=== PATIENT | male | born 1970 | race Caucasian/White ===

== ENCOUNTER 2018-12-21 20:27 | Emergency (ER) | payer MEDICAID ==
[~2018-12-21] VITALS: Ht 180.3 cm; Wt 67.5 kg
[~2018-12-21 20:27] MED LIST: ALB0.5UD NEB; CYCL-394 PO; HYDR1TAB69 PO; LORA-512 PO; OMEP-84 PO; ONDA4TAB6 PO; ONDA8TAB6 PO
[2018-12-21 20:47] VITALS: BP 155/99
== END 2018-12-21 23:18 | disposition home or self-care (01) ==
LOC: ER 20:27
DX: S01.312A Laceration without foreign body of left ear, initial encounter (principal); I10 Essential (primary) hypertension; G89.29 Other chronic pain; F12.90 Cannabis use, unspecified, uncomplicated; Z98.890 Other specified postprocedural states; Z79.899 Other long term (current) drug therapy; Z56.0 Unemployment, unspecified; W01.118A Fall on same level from slipping, tripping and stumbling with subsequent striking against other sharp object, initial encounter; Y93.89 Activity, other specified; Y92.89 Other specified places as the place of occurrence of the external cause; Y99.8 Other external cause status
CPT/HCPCS: 12001; 99283

== ENCOUNTER 2020-10-21 06:46 | Inpatient (IN) | payer MEDICAID ==
[2020-10-21] VITALS (11 sets, daily range): BP systolic 108–155; BP diastolic 63–104
[~2020-10-21] VITALS: Ht 177.8 cm; Wt 190.7 kg
[2020-10-21 07:42] LABS: BASOPHILS # (AUTO) 0.1 X10'3 (0-0.2); BASOPHILS % (AUTO) 0.6 % (0-1); EOSINOPHILS # (AUTO) 0.2 X10'3 (0-0.9); EOSINOPHILS % (AUTO) 2.2 % (0-6); HEMOGLOBIN 14.8 g/dl (14.0-17.9); LYMPHOCYTES # (AUTO) 1.4 X10'3 (1.1-4.8); LYMPHOCYTES % (AUTO) 13.9 % (21-51); MEAN CORPUSCULAR HEMOGLOBIN 31.3 PG (27.0-31.0); MEAN CORPUSCULAR HGB CONC 34.3 g/dL (33.0-36.5); MEAN CORPUSCULAR VOLUME 91.1 FL (78-98); MEAN PLATELET VOLUME 7.1 FL (7.4-10.4); MONOCYTES % (AUTO) 9.8 % (2-12); NEUTROPHILS # (AUTO) 7.5 X10'3 (1.8-7.7); NEUTROPHILS % (AUTO) 73.5 % (42-75); PLATELET COUNT 233 X10'3 (140-440); RED BLOOD COUNT 4.72 X10'6 (4.70-6.10); RED CELL DISTRIBUTION WIDTH 13.7 % (11.5-14.5); WHITE BLOOD COUNT 10.2 X10'3 (4.5-11.0)
[2020-10-21 07:58] LABS: ALANINE AMINOTRANSFERASE 33 U/L (12-78); ALBUMIN 3.4 G/DL (3.4-5.0); ALKALINE PHOSPHATASE 86 IU/L (46-116); ANION GAP 4 (8-16); ASPARTATE AMINO TRANSFERASE 47 U/L (10-37); BILIRUBIN,TOTAL 0.2 MG/DL (0.1-1.0); BLOOD UREA NITROGEN 14 MG/DL (7-18); BUN/CREATININE RATIO 15.7 (5.4-32.0); CALCIUM 8.9 MG/DL (8.5-10.1); CHLORIDE 107 MMOL/L (99-107); CREATININE 0.89 MG/DL (0.60-1.10); GLUCOSE 85 MG/DL (70-104); POTASSIUM 4.1 MMOL/L (3.5-5.1); SODIUM 141 MMOL/L (135-145); TOTAL PROTEIN 6.9 G/DL (6.4-8.2); eGFR > 90 ML/MIN
[2020-10-21] MEDS ORDERED: heparin 10,000 units/1 ML INJ IV ONE ×2 (08:15→08:25)
[2020-10-21] MEDS ORDERED: heparin 25,000 UNIT/250ml bag 250 ML IV SCH ×2 (08:15→08:25)
[2020-10-21] MEDS ORDERED: heparin 10,000 units/1 ML INJ IV PRN ×2 (08:15→08:25)
[2020-10-21] MEDS ORDERED: nitroGLYCERIN 0.4mg SUBLingual tab SL PRN ×2 (08:20→08:25)
--- NOTE | 2020-10-21 08:20 | NUR ---
CALLED PHARMACY TO INFORM THAT PT HEPARIN DRIP IS NOT OMNICELL PER PHARMACIST CRISTINA IT WILL BE READY IN FEW MINS.
[2020-10-21] MEDS ORDERED: ondansetron/PF 4mg/2ml inj IV PRN (08:25)
[2020-10-21] MEDS ORDERED: acetaminophen 650mg rectal suppository RC PRN (08:25)
[2020-10-21] MEDS ORDERED: diphenhydrAMINE 25mg capsule PO PRN (08:25)
[2020-10-21] MEDS ORDERED: magnesium 2GM in 50ml NS 50 ML IV PRN (08:25)
[2020-10-21] MEDS ORDERED: magnesium Cl slow-release 64mg tablet PO PRN (08:25)
[2020-10-21] MEDS ORDERED: HYDROcodone/acetaminophen 5mg/325mg tablet PO PRN (08:25)
[2020-10-21] MEDS ORDERED: magnesium 4gm in 100ml NS 100 ML IV PRN (08:25)
[2020-10-21] MEDS ORDERED: potassium Cl 40MEQ/1/2NS 520ml 520 ML IV PRN ×2 (08:25)
[2020-10-21] MEDS ORDERED: mag hydrox/Alum hydrox/simeth 30ml oral suspension PO PRN (08:25)
[2020-10-21] MEDS ORDERED: acetaminophen 325mg tablet PO PRN ×2 (08:25)
[2020-10-21] MEDS ORDERED: morphine 2 MG/ML inj. syringe IV PRN ×2 (08:25)
[2020-10-21] MEDS ORDERED: LORazepam 0.5 MG tablet PO PRN (08:25)
[2020-10-21] MEDS ORDERED: HYDROcodone/acetaminophen 10/325mg tab PO PRN (08:25)
[2020-10-21] MEDS ORDERED: magnesium hydroxide 30ml (MOM) UD suspension PO PRN (08:25)
[2020-10-21] MEDS ORDERED: potassium Cl 20 mEq SR tablet PO PRN ×2 (08:25)
[2020-10-21] MEDS ORDERED: bisacodyl 10mg suppository rectal RC PRN (08:25)
[2020-10-21] MEDS ORDERED: diphenhydrAMINE 50 mg/ml inj IV PRN (08:25)
[2020-10-21] MEDS ORDERED: LORazepam 2 mg/ml vial IV PRN (08:25)
[2020-10-21] MEDS: atorvastatin 20mg tablet PO SCH (08:25)
[2020-10-21] MEDS ORDERED: aspirin 325mg tablet PO SCH (08:30)
[2020-10-21 08:41] LABS: PARTIAL THROMBOPLASTIN TIME 25 SECONDS (22-32)
[2020-10-21] MEDS ORDERED: midazolam 2 mg/2 ml injection ONE (09:17)
[2020-10-21] MEDS ORDERED: verapamil 2.5 mg/ml inj IV ONE (09:17)
[2020-10-21] MEDS ORDERED: fentaNYL/PF 50MCG/1 ML 2ML syringe ONE (09:17)
[2020-10-21] MEDS ORDERED: LIDOcaine 1% (10mg/ml)w/preservative injection 20ml MDV ONE (09:18)
[2020-10-21] MEDS ORDERED: iohexol 350 MG/ML 50ML vial IV ONE (09:18)
[2020-10-21] MEDS ORDERED: heparin 1,000unit/ml 10ml vial 10 ML ONE (09:18)
[2020-10-21] MEDS ORDERED: iohexol 350MG/ML 100ml bottle IV ONE ×2 (09:18→10:33)
[2020-10-21] MEDS ORDERED: nitroGLYCERIN-Tridil 50MG/D5W 250 ML IV ONE (09:18)
--- NOTE | 2020-10-21 09:42 | NUR ---
Received patient report from SAMARIA Whiteside in ED. Patient left for heart cath with Dr. Ruiz. Awaiting patient arrival to room 3012A.
[2020-10-21] MEDS ORDERED: tirofiban 5mg in NS 100mL 100 ML IV ONE (10:35)
[2020-10-21] MEDS ORDERED: magnesium 1 GM/2 ML inj ONE (11:00)
[2020-10-21] MEDS ORDERED: clopidogrel 300mg tablet ONE (11:08)
--- NOTE | 2020-10-21 11:30 | NUR ---
Patient arrived to room 3012A via hospital bed from cardiac union laborer. Postop vitals started for patient. Bed locked and lowered, nonskid socks on, call light in reach, frequent rounding. Will continue to monitor.
[2020-10-21] MEDS: normal saline 1000ml 1,000 ML IV SCH (12:20)
[2020-10-21] MEDS ORDERED: AMIT100T61 PO (12:52)
[2020-10-21] MEDS ORDERED: ATEN50TA8 PO (12:52)
[2020-10-21] MEDS ORDERED: IBUP-1986 PO (12:52)
[2020-10-21 13:18] LABS: HEMOGLOBIN A1C 5.6 % (4.5-6.2)
[2020-10-21] MEDS: tirofiban 5mg in NS 100mL 100 ML IV SCH ×2 (15:08→20:42)
[2020-10-21] MEDS ORDERED: pneumococcal 23-VAL P-sac vacc 25 mcg/0.5ml vial IMVAC ONE (15:10)
[2020-10-21] MEDS ORDERED: FLU VACC QS2020-21(6MOS UP)/PF 60 MCG/0.5 ML SYRINGE IMVAC ONE ×2 (15:10→15:55)
--- NOTE | 2020-10-21 15:21 | NUR ---
Orders for nicotine patch put in per Dr. Canseco.
--- NOTE | 2020-10-21 16:10 | NUR ---
Orders to D/C 12hr troponin put in per Dr. Canseco.
--- NOTE | 2020-10-21 18:12 | NUR ---
Problems reprioritized. Patient report given, questions answered & plan of care reviewed with SAMARIA Ceballos. Patient stable at transfer of care.
--- NOTE | 2020-10-21 18:20 | NUR ---
Patient in room PCU 3012. I have received report from SAMARIA Lyle and had the opportunity to ask questions and assume patient care.
[2020-10-21] MEDS: K and/or MAG REPLACEMENT MC SCH (20:00)
[2020-10-21] MEDS ORDERED: temazepam 15mg capsule PO PRN (21:00)
[2020-10-21] MEDS ORDERED: amitriptyline 50mg tablet PO SCH (21:00)
[2020-10-22] MEDS: normal saline 1000ml 1,000 ML IV SCH ×3 (00:50→14:25)
[2020-10-22] MEDS: tirofiban 5mg in NS 100mL 100 ML IV SCH (02:39)
[2020-10-22 06:06] LABS: BASOPHILS % (AUTO) 0.4 % (0-1); EOSINOPHILS # (AUTO) 0.3 X10'3 (0-0.9); EOSINOPHILS % (AUTO) 3.4 % (0-6); HEMATOCRIT 40.8 % (42.0-52.0); LYMPHOCYTES # (AUTO) 1.7 X10'3 (1.1-4.8); LYMPHOCYTES % (AUTO) 21.1 % (21-51); MEAN CORPUSCULAR HEMOGLOBIN 31.1 PG (27.0-31.0); MEAN CORPUSCULAR HGB CONC 34.3 g/dL (33.0-36.5); MEAN CORPUSCULAR VOLUME 90.7 FL (78-98); MEAN PLATELET VOLUME 7.2 FL (7.4-10.4); MONOCYTES # (AUTO) 0.9 X10'3 (0-0.9); MONOCYTES % (AUTO) 10.9 % (2-12); NEUTROPHILS % (AUTO) 64.2 % (42-75); PLATELET COUNT 196 X10'3 (140-440); RED CELL DISTRIBUTION WIDTH 13.8 % (11.5-14.5); WHITE BLOOD COUNT 7.8 X10'3 (4.5-11.0)
[2020-10-22 06:22] LABS: ALANINE AMINOTRANSFERASE 41 U/L (12-78); ALBUMIN 3.1 G/DL (3.4-5.0); ALKALINE PHOSPHATASE 82 IU/L (46-116); ANION GAP 7 (8-16); ASPARTATE AMINO TRANSFERASE 83 U/L (10-37); BILIRUBIN,TOTAL 0.3 MG/DL (0.1-1.0); CALCIUM 8.6 MG/DL (8.5-10.1); CHLORIDE 108 MMOL/L (99-107); CHOL/HDL RATIO 4.3 (0.00-4.99); CHOLESTEROL 156 MG/DL (0-200); CREATININE 0.82 MG/DL (0.60-1.10); GLUCOSE 110 MG/DL (70-104); HDL CHOLESTEROL 36 MG/DL (35-60); LDL CHOLESTEROL 107 MG/DL (50-100); MAGNESIUM 1.9 MG/DL (1.5-2.4); SODIUM 139 MMOL/L (135-145); TOTAL CARBON DIOXIDE 24.1 MMOL/L (24-32); TOTAL PROTEIN 6.3 G/DL (6.4-8.2); TRIGLYCERIDES 94 MG/DL (20-135); eGFR > 90 ML/MIN
[2020-10-22 06:29] LABS: BLOOD UREA NITROGEN 10 MG/DL (7-18); BUN/CREATININE RATIO 12.2 (5.4-32.0)
--- NOTE | 2020-10-22 06:30 | NUR ---
Problems reprioritized. Patient report given, questions answered & plan of care reviewed with Lin MERA.
--- NOTE | 2020-10-22 06:43 | NUR ---
Problems reprioritized. Patient report given, questions answered & plan of care reviewed with SAMARIA Elam.
[2020-10-22 07:21] VITALS: BP 131/85
[2020-10-22] MEDS: K and/or MAG REPLACEMENT MC SCH (08:00)
[2020-10-22] MEDS ORDERED: clopidogrel 75mg tablet PO SCH (08:00)
[2020-10-22] MEDS ORDERED: losartan 25mg tablet PO SCH (08:00)
[2020-10-22] MEDS ORDERED: nicotine 14mg patch - 24hr TD SCH (08:00)
[2020-10-22] MEDS ORDERED: pantoprazole 40mg Tablet.DR PO SCH (08:00)
[2020-10-22] MEDS ORDERED: atenolol 25mg tablet PO SCH (08:00)
[2020-10-22] MEDS ORDERED: atorvastatin 20mg tablet PO SCH (08:00)
[2020-10-22] MEDS ORDERED: aspirin 81mg tab.chew PO SCH (08:30)
[2020-10-22] MEDS ORDERED: pneumococcal 23-VAL P-sac vacc 25 mcg/0.5ml vial IMVAC ONE ×2 (10:00→13:30)
[2020-10-22] MEDS: atorvastatin 20mg tablet PO SCH (10:30)
[2020-10-22 11:30] VITALS: BP 114/90
[2020-10-22] MEDS ORDERED: ATEN-168 PO (12:16)
[2020-10-22] MEDS ORDERED: CLOP75TA34 PO (12:16)
[2020-10-22] MEDS ORDERED: NITR0.4T51 SL (12:16)
[2020-10-22] MEDS ORDERED: LOSA25TA41 PO (12:16)
[2020-10-22] MEDS ORDERED: ATOR20TA66 PO (12:16)
[2020-10-22] MEDS ORDERED: FLU VACC QS2020-21(6MOS UP)/PF 60 MCG/0.5 ML SYRINGE IMVAC ONE (13:30)
[2020-10-22 15:00] VITALS: BP 108/69
--- NOTE | 2020-10-22 15:45 | NUR ---
Patient discharged and both IV taken out at this time, sites showed minimal bleeding and canula was intact for both. Patient left with education of procedures done, patient expressed verbal understanding. Patient educated on new medication and how to use. Patient left with private vehicle and taken home.
== END 2020-10-22 15:45 | disposition home or self-care (01) | DRG 174 ==
LOC: ER 06:47 → ED HOLD 08:25 → PCU 3S 11:49
PROVIDERS: ADMIT Family Medicine; ATTEND Family Medicine
PROC: 027034Z Dilation of Coronary Artery, One Artery with Drug-eluting Intraluminal Device, Percutaneous Approach (ICD-10-PCS; principal; 2020-10-21)
PROC: 4A023N7 Measurement of Cardiac Sampling and Pressure, Left Heart, Percutaneous Approach (ICD-10-PCS; 2020-10-21)
PROC: B2111ZZ Fluoroscopy of Multiple Coronary Arteries using Low Osmolar Contrast (ICD-10-PCS; 2020-10-21)
PROC: B2151ZZ Fluoroscopy of Left Heart using Low Osmolar Contrast (ICD-10-PCS; 2020-10-21)
DX: I21.4 Non-ST elevation (NSTEMI) myocardial infarction (principal); I24.9 Acute ischemic heart disease, unspecified; I10 Essential (primary) hypertension; F17.210 Nicotine dependence, cigarettes, uncomplicated; F32.9 Major depressive disorder, single episode, unspecified; F41.9 Anxiety disorder, unspecified; J45.909 Unspecified asthma, uncomplicated; K21.9 Gastro-esophageal reflux disease without esophagitis; M54.9 Dorsalgia, unspecified; G89.29 Other chronic pain; M19.90 Unspecified osteoarthritis, unspecified site; Z20.822 Contact with and (suspected) exposure to COVID-19; Z56.0 Unemployment, unspecified; Z82.49 Family history of ischemic heart disease and other diseases of the circulatory system; Z87.442 Personal history of urinary calculi; Z88.8 Allergy status to other drugs, medicaments and biological substances; Z79.899 Other long term (current) drug therapy
CPT/HCPCS: 36415; 71045; 76937; 80053; 80061; 83036; 83735; 83880; 84484; 85025; 85347; 85610; 85730; 87081; 87635; 90732; 93005; 93306; 93308; 93458; 99152; 99153; 99285; A4620; A5120; A6258; C1725; C1751; C1769; C1874; C1894; C9600; C9803; G0378; J1644; J2001; J2250; J3010; J3246; J3475; J3490; J7030; Q2039; Q9967

== ENCOUNTER 2022-01-23 14:14 | Inpatient (IN) | payer MEDICAID ==
[~2022-01-23] VITALS: Ht 177.8 cm; Wt 80.7 kg
[~2022-01-23 14:14] MED LIST changes: +AMIT100T61 PO; +ATEN-168 PO; +ATOR20TA66 PO; +CLOP75TA34 PO; -HYDR1TAB69 PO; -LORA-512 PO; +LOSA25TA41 PO; +NITR0.4T51 SL; -ONDA4TAB6 PO; -ONDA8TAB6 PO
[2022-01-23 15:20] LABS: BASOPHILS % (AUTO) 0.5 % (0-1); EOSINOPHILS # (AUTO) 0.2 X10'3 (0-0.9); EOSINOPHILS % (AUTO) 3.6 % (0-6); HEMATOCRIT 44.4 % (42.0-52.0); HEMOGLOBIN 15.2 g/dl (14.0-17.9); LYMPHOCYTES # (AUTO) 1.4 X10'3 (1.1-4.8); LYMPHOCYTES % (AUTO) 29.3 % (21-51); MEAN CORPUSCULAR HEMOGLOBIN 30.5 PG (27.0-31.0); MEAN CORPUSCULAR HGB CONC 34.3 g/dL (33.0-36.5); MEAN CORPUSCULAR VOLUME 88.9 FL (78-98); MEAN PLATELET VOLUME 7.5 FL (7.4-10.4); MONOCYTES # (AUTO) 0.5 X10'3 (0-0.9); MONOCYTES % (AUTO) 10.6 % (2-12); NEUTROPHILS # (AUTO) 2.7 X10'3 (1.8-7.7); PLATELET COUNT 189 X10'3 (140-440); RED CELL DISTRIBUTION WIDTH 12.9 % (11.5-14.5); WHITE BLOOD COUNT 4.8 X10'3 (4.5-11.0)
[2022-01-23 15:40] LABS: ALANINE AMINOTRANSFERASE 30 U/L (12-78); ALBUMIN 3.8 G/DL (3.4-5.0); ALKALINE PHOSPHATASE 94 IU/L (46-116); ANION GAP 9 (8-16); ASPARTATE AMINO TRANSFERASE 12 U/L (10-37); BILIRUBIN,TOTAL 0.4 MG/DL (0.1-1.0); BLOOD UREA NITROGEN 18 MG/DL (7-18); CALCIUM 8.7 MG/DL (8.5-10.1); CHLORIDE 91 MMOL/L (99-107); POTASSIUM 4.2 MMOL/L (3.5-5.1); SODIUM 128 MMOL/L (135-145); TOTAL PROTEIN 7.5 G/DL (6.4-8.2); eGFR 64 ML/MIN
[2022-01-23 15:44] LABS: GLUCOSE 456 MG/DL (70-104)
[2022-01-23] MEDS ORDERED: ASPI-1265 PO (16:28)
[2022-01-23] MEDS ORDERED: DIVA-76 PO ×2 (16:30)
[2022-01-23] MEDS ORDERED: HYDR-3927 PO (16:30)
[2022-01-23] MEDS ORDERED: ATOR40TA72 PO (16:39)
[2022-01-23] MEDS ORDERED: ALBU8.5H17 INH (16:39)
[2022-01-23] MEDS ORDERED: ATEN-236 PO (16:39)
[2022-01-23] MEDS ORDERED: LOSA25TA96 PO (16:42)
[2022-01-23] MEDS ORDERED: CLOP75TA33 PO (16:42)
[2022-01-23] MEDS ORDERED: NITR0.4T51 SL (16:42)
[2022-01-23] MEDS ORDERED: potassium Cl 20 mEq SR tablet PO PRN ×2 (16:55)
[2022-01-23] MEDS ORDERED: nitroGLYCERIN 0.4mg SUBLingual tab SL PRN ×3 (16:55→17:20)
[2022-01-23] MEDS ORDERED: ondansetron 4mg rapidly disintigrating tab PO PRN (16:55)
[2022-01-23] MEDS ORDERED: magnesium 2GM in 50ml NS 50 ML IV PRN (16:55)
[2022-01-23] MEDS ORDERED: morphine 2 MG/ML inj. syringe IV PRN ×2 (16:55)
[2022-01-23] MEDS ORDERED: magnesium Cl slow-release 64mg tablet PO PRN (16:55)
[2022-01-23] MEDS ORDERED: magnesium hydroxide 30ml (MOM) UD suspension PO PRN (16:55)
[2022-01-23] MEDS ORDERED: PERFLUTREN PROTEIN-A MICROSPHR (Optison) 0.22 MG/ML 3ML VIAL IV ONE (16:55)
[2022-01-23] MEDS ORDERED: ondansetron/PF 4mg/2ml inj IV PRN (16:55)
[2022-01-23] MEDS ORDERED: acetaminophen 325mg tablet PO PRN ×2 (16:55)
[2022-01-23] MEDS ORDERED: metoprolol tartrate 1mg/ml inj IV PRN (16:55)
[2022-01-23] MEDS ORDERED: metoclopramide 5 mg/ml inj IV PRN (16:55)
[2022-01-23] MEDS ORDERED: mag hydrox/Alum hydrox/simeth 30ml oral suspension PO PRN (16:55)
[2022-01-23] MEDS ORDERED: regadenoson 0.4mg/5ml syringe IV PRN (16:55)
[2022-01-23] MEDS ORDERED: magnesium 4gm in 100ml NS 100 ML IV PRN (16:55)
[2022-01-23] MEDS ORDERED: aminophylline 250mg/10ml inj. IV PRN (16:55)
[2022-01-23] MEDS ORDERED: potassium CL 10mEq/100ml bag 100 ML IV PRN (16:55)
[2022-01-23] MEDS ORDERED: albuterol 2.5 MG/3 ML nebule NEB PRN (17:20)
[2022-01-23] MEDS: normal saline 1000ml 1,000 ML IV SCH (17:29)
[2022-01-23 17:31] LABS: HEMOGLOBIN A1C 11.3 % (4.5-6.2)
[2022-01-23 17:48] LABS: MAGNESIUM 1.9 MG/DL (1.5-2.4)
[2022-01-23 17:49] LABS: POTASSIUM 4.2 MMOL/L (3.5-5.1)
[2022-01-23] MEDS: K and/or MAG REPLACEMENT MC SCH (20:00)
[2022-01-23 20:15] VITALS: BP 109/85
--- NOTE | 2022-01-23 20:29 | NUR ---
PATIENT ARRIVED ON THE UNIT AND DENIES AND PAIN. RESTING WITH NO SIGN OF DISTRESS
[2022-01-23] MEDS: hydrOXYzine 25 MG tablet PO SCH (20:37)
[2022-01-23] MEDS: docusate sod 100mg capsule PO SCH (20:37)
[2022-01-23] MEDS ORDERED: amitriptyline 50mg tablet PO SCH (21:00)
[2022-01-23] MEDS ORDERED: divalproex sodium 500mg tablet.DR PO SCH (21:00)
[2022-01-23 22:00] VITALS: BP 98/74
--- NOTE | 2022-01-23 22:20 | NUR ---
PAGED HOSPITALIST MATT TWICE CONCERNING PATIENT BLOOD GLUCOSE ([phone]). PATIENT IS NEWLY ADMITTED AND NO RESPONSE.
[2022-01-24] VITALS (13 sets, daily range): BP systolic 119–166; BP diastolic 72–92
[2022-01-24] MEDS: normal saline 1000ml 1,000 ML IV SCH (03:57)
[2022-01-24 05:20] LABS: BASOPHILS % (AUTO) 0.7 % (0-1); EOSINOPHILS # (AUTO) 0.2 X10'3 (0-0.9); EOSINOPHILS % (AUTO) 4.8 % (0-6); HEMATOCRIT 40.7 % (42.0-52.0); HEMOGLOBIN 14.2 g/dl (14.0-17.9); LYMPHOCYTES # (AUTO) 1.4 X10'3 (1.1-4.8); LYMPHOCYTES % (AUTO) 35.9 % (21-51); MEAN CORPUSCULAR HEMOGLOBIN 30.9 PG (27.0-31.0); MEAN CORPUSCULAR HGB CONC 34.8 g/dL (33.0-36.5); MEAN CORPUSCULAR VOLUME 88.8 FL (78-98); MEAN PLATELET VOLUME 7.4 FL (7.4-10.4); MONOCYTES # (AUTO) 0.4 X10'3 (0-0.9); MONOCYTES % (AUTO) 11.4 % (2-12); NEUTROPHILS # (AUTO) 1.9 X10'3 (1.8-7.7); NEUTROPHILS % (AUTO) 47.2 % (42-75); PLATELET COUNT 148 X10'3 (140-440); RED BLOOD COUNT 4.59 X10'6 (4.70-6.10); RED CELL DISTRIBUTION WIDTH 12.9 % (11.5-14.5); WHITE BLOOD COUNT 3.9 X10'3 (4.5-11.0)
[2022-01-24] MEDS ORDERED: glucagon, human recombinant 1mg kit SUBCUT PRN (05:40)
[2022-01-24] MEDS ORDERED: insulin Lispro (HumaLOG) vial - multi-dose SQ SCH (05:40)
[2022-01-24] MEDS ORDERED: dextrose 50%-water 50ml dispensing syringe IV PRN ×2 (05:40)
[2022-01-24] MEDS ORDERED: DEXTROSE 15 GM of carb/4 tabs (each vial/BOTTLE has 4 tablets) PO PRN ×2 (05:40)
[2022-01-24] MEDS ORDERED: MESSAGE TO PHARMACY PO ONE (05:40)
[2022-01-24 05:59] LABS: ALANINE AMINOTRANSFERASE 28 U/L (12-78); ALBUMIN 3.2 G/DL (3.4-5.0); ALBUMIN/GLOBULIN RATIO 1.1 (1.1-1.5); ALKALINE PHOSPHATASE 77 IU/L (46-116); ANION GAP 9 (8-16); ASPARTATE AMINO TRANSFERASE 15 U/L (10-37); BILIRUBIN,TOTAL 0.3 MG/DL (0.1-1.0); BLOOD UREA NITROGEN 16 MG/DL (7-18); BUN/CREATININE RATIO 18.8 (5.4-32.0); CALCIUM 8.4 MG/DL (8.5-10.1); CHLORIDE 101 MMOL/L (99-107); CHOLESTEROL 169 MG/DL (0-200); CREATININE 0.85 MG/DL (0.60-1.10); GLUCOSE 270 MG/DL (70-104); HDL CHOLESTEROL 34 MG/DL (35-60); LDL CHOLESTEROL 98 MG/DL (50-100); MAGNESIUM 1.7 MG/DL (1.5-2.4); POTASSIUM 3.6 MMOL/L (3.5-5.1); SODIUM 134 MMOL/L (135-145); TOTAL CARBON DIOXIDE 24.1 MMOL/L (24-32); TOTAL PROTEIN 6.2 G/DL (6.4-8.2); TRIGLYCERIDES 261 MG/DL (20-135); eGFR > 90 ML/MIN
[2022-01-24] MEDS ORDERED: atenolol 25mg tablet PO SCH (08:00)
[2022-01-24] MEDS ORDERED: divalproex sodium 500mg tablet.DR PO SCH (08:00)
[2022-01-24] MEDS ORDERED: pantoprazole 40mg Tablet.DR PO SCH (08:00)
[2022-01-24] MEDS: K and/or MAG REPLACEMENT MC SCH (08:00)
[2022-01-24] MEDS ORDERED: clopidogrel 75mg tablet PO SCH (08:00)
[2022-01-24] MEDS ORDERED: enoxaparin 40mg/0.4ml syringe SUBCUT SCH (08:00)
[2022-01-24] MEDS ORDERED: losartan 25mg tablet PO SCH ×2 (08:00)
[2022-01-24] MEDS ORDERED: atorvastatin 20mg tablet PO SCH (08:00)
[2022-01-24] MEDS ORDERED: aspirin 325mg tablet PO SCH (08:30)
[2022-01-24] MEDS: hydrOXYzine 25 MG tablet PO SCH (08:30)
[2022-01-24] MEDS: docusate sod 100mg capsule PO SCH (08:31)
--- NOTE | 2022-01-24 11:23 | NUR ---
PAGER ID: [phone] MESSAGE: JUSTIN ON [email or web address], THE EMIGDOI RESULTS ARE AVIALABLE FOR 3027B, THX.
--- NOTE | 2022-01-24 11:24 | NUR ---
Diabetes consult: Noted pt w/ hx of DM A1c 11.3 though pt states he was unaware of diabetes until this admit. Provided pt w/ written and verbal DM ed w/ RD contact info. Addendum: 01/24/22 at [address] Amended: Links added.
--- NOTE | 2022-01-24 11:43 | NUR ---
Atenolol and Depakote administered late r/t needing medication from pharmacy and patient went to have Lexiscan performed.
[2022-01-24] MEDS ORDERED: iohexol 300mg/ml 100ml inj. ONE (12:38)
[2022-01-24] MEDS ORDERED: OMEP20CA15 PO (15:01)
--- NOTE | 2022-01-24 16:29 | NUR ---
Patient discharged with all personal belongings. Discharge packet reviewed with patient and spouse who was at bedside. All questions answered r/t medication changes and continued medication, patient stated he has a doctors appointment this week at [facility] and plans on going. Diabetic teaching provided at bedside patient asked appropriate questions and received answers well. The importance to attend his follow up appointment reiterated multiple times throughout education and discharge review. PIV removed from right arm, patient tolerated well with no c/o pain present, pressure dressing placed. Tele removed and returned. Patient dressed himself independently and walked down to lobby by nursing staff with all his belongings.
--- NOTE | 2022-01-24 16:30 | NUR ---
Orientee documentation: I have reviewed and agree with all interventions, assessments performed and documented by ZAN Chew II.
[2022-01-24] MEDS ORDERED: insulin glargine (Lantus) pen - multi-dose SQ SCH (21:00)
== END 2022-01-24 16:20 | disposition home or self-care (01) | DRG 198 ==
LOC: ER 14:15 → ED HOLD 17:04 → UNDOADMIN 17:53 → PCU 3S 20:20 → ED HOLD 20:20
PROVIDERS: ADMIT Family Medicine; ATTEND Family Medicine
PROC: 4A02XM4 Measurement of Cardiac Total Activity, External Approach (ICD-10-PCS; principal; 2022-01-24)
PROC: 3E073KZ Introduction of Other Diagnostic Substance into Coronary Artery, Percutaneous Approach (ICD-10-PCS; 2022-01-24)
PROC: BW241ZZ Computerized Tomography (CT Scan) of Chest and Abdomen using Low Osmolar Contrast (ICD-10-PCS; 2022-01-24)
DX: R07.89 Other chest pain (principal); I25.119 Atherosclerotic heart disease of native coronary artery with unspecified angina pectoris; E87.1 Hypo-osmolality and hyponatremia; E11.9 Type 2 diabetes mellitus without complications; I10 Essential (primary) hypertension; E78.5 Hyperlipidemia, unspecified; K21.9 Gastro-esophageal reflux disease without esophagitis; J04.0 Acute laryngitis; F17.210 Nicotine dependence, cigarettes, uncomplicated; Z87.442 Personal history of urinary calculi; Z95.5 Presence of coronary angioplasty implant and graft; Z79.899 Other long term (current) drug therapy; Z88.8 Allergy status to other drugs, medicaments and biological substances; Z79.82 Long term (current) use of aspirin; Z56.0 Unemployment, unspecified
CPT/HCPCS: 36415; 71045; 71260; 78452; 80053; 80061; 82948; 83036; 83735; 83880; 84132; 84484; 85025; 87081; 93005; 93017; 93306; 99285; A9500; G0378; J1650; J1815; J2785; J7030; Q0177; Q9967

== ENCOUNTER 2022-10-23 09:52 | Emergency (ER) | payer MEDICAID ==
[~2022-10-23] VITALS: Ht 177.8 cm; Wt 81.8 kg
[~2022-10-23 09:52] MED LIST changes: -ALB0.5UD NEB; +ALBU8.5H17 INH; +ASPI-1265 PO; -ATEN-168 PO; +ATEN-236 PO; -ATOR20TA66 PO; +ATOR40TA72 PO; +CLOP75TA33 PO; -CLOP75TA34 PO; +DIVA-76 PO; +HYDR-3927 PO; -OMEP-84 PO; +OMEP20CA15 PO
[2022-10-23 10:01] VITALS: BP 145/103
== END 2022-10-23 11:18 | disposition home or self-care (01) ==
LOC: ER 09:53
DX: S60.444A External constriction of right ring finger, initial encounter (principal); I10 Essential (primary) hypertension; E11.9 Type 2 diabetes mellitus without complications; G89.29 Other chronic pain; F12.90 Cannabis use, unspecified, uncomplicated; Z98.890 Other specified postprocedural states; Z87.442 Personal history of urinary calculi; Z56.0 Unemployment, unspecified; Z88.8 Allergy status to other drugs, medicaments and biological substances; Z79.82 Long term (current) use of aspirin; Z79.899 Other long term (current) drug therapy; X58.XXXA Exposure to other specified factors, initial encounter; Y93.89 Activity, other specified; Y92.89 Other specified places as the place of occurrence of the external cause; Y99.8 Other external cause status
CPT/HCPCS: 99284

== ENCOUNTER 2023-05-15 18:51 | Inpatient (IN) | payer MEDICAID ==
[~2023-05-15] VITALS: Ht 182.9 cm; Wt 100.0 kg
[2023-05-15] MEDS ORDERED: normal saline 1000ML IV soln IVB ONE (19:00)
[2023-05-15 19:30] LABS: BASOPHILS % (AUTO) 0.3 % (0-1); EOSINOPHILS # (AUTO) 0.1 X10'3 (0-0.9); EOSINOPHILS % (AUTO) 1.1 % (0-6); HEMATOCRIT 41.2 % (42.0-52.0); HEMOGLOBIN 13.7 g/dl (14.0-17.9); LYMPHOCYTES # (AUTO) 1.2 X10'3 (1.1-4.8); LYMPHOCYTES % (AUTO) 12.3 % (21-51); MEAN CORPUSCULAR HEMOGLOBIN 30.5 PG (27.0-31.0); MEAN CORPUSCULAR HGB CONC 33.3 g/dL (33.0-36.5); MEAN CORPUSCULAR VOLUME 91.5 FL (78-98); MONOCYTES # (AUTO) 1.1 X10'3 (0-0.9); MONOCYTES % (AUTO) 11.1 % (2-12); NEUTROPHILS # (AUTO) 7.6 X10'3 (1.8-7.7); NEUTROPHILS % (AUTO) 75.2 % (42-75); PLATELET COUNT 132 X10'3 (140-440); RED CELL DISTRIBUTION WIDTH 13.9 % (11.5-14.5); WHITE BLOOD COUNT 10.1 X10'3 (4.5-11.0)
[2023-05-15 19:36] LABS: ALANINE AMINOTRANSFERASE 16 U/L (12-78); ALBUMIN 3.4 G/DL (3.4-5.0); ALBUMIN/GLOBULIN RATIO 1.1 (1.1-1.5); ALKALINE PHOSPHATASE 64 IU/L (46-116); ANION GAP 10 (8-16); ASPARTATE AMINO TRANSFERASE 13 U/L (10-37); BILIRUBIN,TOTAL 0.3 MG/DL (0.1-1.0); BLOOD UREA NITROGEN 26 MG/DL (7-18); BUN/CREATININE RATIO 12.8 (10.0-20.0); CALCIUM 8.7 MG/DL (8.5-10.1); CHLORIDE 104 MMOL/L (99-107); CREATININE 2.03 MG/DL (0.60-1.10); GLUCOSE 90 MG/DL (70-104); POTASSIUM 4.1 MMOL/L (3.5-5.1); SODIUM 140 MMOL/L (135-145); TOTAL CARBON DIOXIDE 25.7 MMOL/L (24-32); TOTAL PROTEIN 6.4 G/DL (6.4-8.2); eCRCL 47 ML/MIN; eGFR 35 ML/MIN
[2023-05-15 19:43] LABS: MAGNESIUM 1.6 MG/DL (1.5-2.4); PRO BRAIN NATRIURETIC PEPTIDE 72 PG/ML (0-125)
[2023-05-15] MEDS ORDERED: temazepam 15mg capsule PO PRN (21:00)
[2023-05-15 21:36] LABS: BILIRUBIN,URINE SMALL (Neg); CLARITY,URINE CLEAR (Clear); GLUCOSE, URINE NEGATIVE (Neg); KETONES,URINE TRACE mg/dl (Neg); LEUKOCYTE ESTERASE ,URINE NEGATIVE (Neg); NITRITES, URINE NEGATIVE (Neg); OCCULT BLOOD,URINE NEGATIVE (Neg); PROTEIN,URINE 30 mg/dl (Neg)
[2023-05-15 21:40] LABS: COLOR,URINE DARK YELLOW (Yellow); UA COLLECTION TYPE CLN CATCH MIDSTREAM
[2023-05-15 21:44] LABS: BACTERIA,URINE FEW /HPF (Neg); MUCUS STRANDS MANY /LPF (Neg); RBC,URINE 0-2 /HPF (0-2); SQUAMOUS EPITHELIAL CELL,UR NONE SEEN /LPF (FEW)
[2023-05-15] MEDS ORDERED: ondansetron/PF 4mg/2ml inj IV PRN (21:50)
[2023-05-15] MEDS ORDERED: acetaminophen 650mg rectal suppository RC PRN (21:50)
[2023-05-15] MEDS ORDERED: diphenhydrAMINE 25mg capsule PO PRN (21:50)
[2023-05-15] MEDS ORDERED: acetaminophen 325mg tablet PO PRN ×2 (21:50)
[2023-05-15] MEDS ORDERED: ondansetron 4mg rapidly disintigrating tab PO PRN (21:50)
[2023-05-15] MEDS ORDERED: bisacodyl 10mg suppository rectal RC PRN (21:50)
[2023-05-15] MEDS ORDERED: mag hydrox/Alum hydrox/simeth 30ml oral suspension PO PRN (21:50)
[2023-05-15] MEDS ORDERED: magnesium hydroxide 30ml (MOM) UD suspension PO PRN (21:50)
[2023-05-15] MEDS ORDERED: diphenhydrAMINE 50 mg/ml inj IV PRN (21:50)
[2023-05-15] MEDS ORDERED: morphine 2 MG/ML inj. syringe IV PRN ×2 (21:50)
[2023-05-15] MEDS ORDERED: dextrose 50%-water 50ml dispensing syringe IV PRN ×2 (21:55)
[2023-05-15] MEDS ORDERED: glucagon, human recombinant 1mg kit SUBCUT PRN (21:55)
[2023-05-15] MEDS ORDERED: DEXTROSE 15 GM of carb/4 tabs (each vial/BOTTLE has 4 tablets) PO PRN ×2 (21:55)
[2023-05-15] MEDS ORDERED: MESSAGE TO PHARMACY PO ONE (21:55)
[2023-05-15] MEDS ORDERED: insulin Lispro (HumaLOG) vial - multi-dose SQ SCH (21:55)
[2023-05-15] MEDS: normal saline 1000ml 1,000 ML IV SCH (22:07)
[2023-05-15 22:14] LABS: HEMOGLOBIN A1C 5.5 % (4.5-6.2)
[2023-05-15 22:25] LABS: CREATINE KINASE 64 U/L (39-308); LIPASE 136 U/L (73-393); THYROID STIMULATING HORMONE 1.65 ulU/ml (0.34-4.50); VALPROATE 78 UG/ML (50-100)
[2023-05-15 22:40] LABS: D-DIMER < 0.19 MG/L FEU (0-0.50)
[2023-05-15] MEDS ORDERED: ringers solution, lacted 1,000 ML IV ONE (22:40)
[2023-05-15 23:09] LABS: URINE AMPHETAMINE SCREEN NEGATIVE (Neg); URINE BARBITUATE SCREEN NEGATIVE (Neg); URINE BENZODIAZEPINES SCREEN NEGATIVE (Neg); URINE CANNABINOID SCREEN POSITIVE (Neg); URINE COCAINE SCREEN NEGATIVE (Neg); URINE METHADONE SCREEN NEGATIVE (Neg); URINE OPIATE SCREEN NEGATIVE (Neg); URINE PHENCYCLIDINE SCREEN NEGATIVE (Neg)
[2023-05-16] VITALS (9 sets, daily range): BP systolic 110–164; BP diastolic 61–109; PULSE 63–75; RESP 14–17; TEMP 97–98.4; O2SAT 95–99
--- NOTE | 2023-05-16 00:50 | NUR ---
pt arrived to room 4007. pt has been oriented to the room. vss. received report from alexis Mcconnell prior to pt's arrival.
[2023-05-16] MEDS: HYDROcodone/acetaminophen 5mg/325mg tablet PO PRN ×2 (01:17→05:36)
[2023-05-16] MEDS: normal saline 1000ml 1,000 ML IV SCH ×2 (05:15→11:10)
--- NOTE | 2023-05-16 06:33 | NUR ---
Problems reprioritized. Patient report given, questions answered & plan of care reviewed with robert Soto.
[2023-05-16 06:42] LABS: BASOPHILS % (AUTO) 0.4 % (0-1); EOSINOPHILS # (AUTO) 0.2 X10'3 (0-0.9); EOSINOPHILS % (AUTO) 4.1 % (0-6); HEMATOCRIT 37.3 % (42.0-52.0); HEMOGLOBIN 12.7 g/dl (14.0-17.9); LYMPHOCYTES # (AUTO) 1.4 X10'3 (1.1-4.8); LYMPHOCYTES % (AUTO) 28.2 % (21-51); MEAN CORPUSCULAR HEMOGLOBIN 31.2 PG (27.0-31.0); MEAN CORPUSCULAR VOLUME 91.6 FL (78-98); MEAN PLATELET VOLUME 7.4 FL (7.4-10.4); MONOCYTES # (AUTO) 0.4 X10'3 (0-0.9); MONOCYTES % (AUTO) 7.7 % (2-12); NEUTROPHILS # (AUTO) 2.9 X10'3 (1.8-7.7); NEUTROPHILS % (AUTO) 59.6 % (42-75); PLATELET COUNT 94 X10'3 (140-440); RED BLOOD COUNT 4.07 X10'6 (4.70-6.10); RED CELL DISTRIBUTION WIDTH 13.7 % (11.5-14.5); WHITE BLOOD COUNT 4.8 X10'3 (4.5-11.0)
[2023-05-16 07:01] LABS: ALBUMIN 2.8 G/DL (3.4-5.0); ANION GAP 8 (8-16); BLOOD UREA NITROGEN 25 MG/DL (7-18); BUN/CREATININE RATIO 19.7 (10.0-20.0); CALCIUM 8.2 MG/DL (8.5-10.1); CHLORIDE 107 MMOL/L (99-107); CHOL/HDL RATIO 2.5 (0.00-4.99); CHOLESTEROL 107 MG/DL (0-200); CREATININE 1.27 MG/DL (0.60-1.10); GLUCOSE 79 MG/DL (70-104); HDL CHOLESTEROL 42 MG/DL (35-60); LDL CHOLESTEROL 44 MG/DL (50-100); POTASSIUM 3.5 MMOL/L (3.5-5.1); SODIUM 142 MMOL/L (135-145); TOTAL CARBON DIOXIDE 26.8 MMOL/L (24-32); TRIGLYCERIDES 76 MG/DL (20-135); eCRCL 75 ML/MIN; eGFR 60 ML/MIN
[2023-05-16] MEDS ORDERED: heparin, porcine 5000 units/ml vial SQ SCH (08:00)
[2023-05-16] MEDS: nicotine 21mg patch - 24 hr TD SCH (08:27)
[2023-05-16] MEDS: docusate sod 100mg capsule PO SCH ×2 (08:28→19:59)
[2023-05-16] MEDS ORDERED: aspirin 81mg tab.chew PO SCH (10:30)
[2023-05-16] MEDS: clopidogrel 75mg tablet PO SCH (10:56)
[2023-05-16] MEDS: atenolol 25mg tablet PO SCH (10:56)
--- NOTE | 2023-05-16 10:56 | NUR ---
DM consult: Per EMR pt with T2DM though unsure of accuracy as pt with A1c h/o 5.6% 10/21/20 and 11.3% 01/23/22 with A1c 5.5% this admit. Per RD note at previous admit in December 2021 pt did not have a known h/o DM and this A1c appears to be an outlier. Given current A1c and BG 79-113 mg/dL this admit DM education and CHO controlled diet is not warranted. TC to LABOR UTILIZATION SUPERINTENDENT with recommendation to liberalize to regular diet. Will continue to follow. Addendum: 05/16/23 at [address] Amended: Links added.
[2023-05-16] MEDS: losartan 25mg tablet PO SCH (10:57)
[2023-05-16] MEDS: divalproex sodium 500mg tablet.DR PO SCH ×2 (10:57→20:00)
[2023-05-16] MEDS: pantoprazole 40mg Tablet.DR PO SCH (10:57)
[2023-05-16] MEDS: meclizine 12.5mg tablet PO SCH ×2 (14:00→20:01)
--- NOTE | 2023-05-16 16:00 | NUR ---
I have reviewed and agree with interventions, assessments, and documentation by ZAN Mims.
[2023-05-16] MEDS ORDERED: ISOS30TA84 PO (16:29)
[2023-05-16] MEDS ORDERED: METF-1203 PO (16:31)
[2023-05-16] MEDS ORDERED: LOSA-416 PO (16:34)
[2023-05-16] MEDS ORDERED: OMEP20CA16 PO (16:34)
[2023-05-16] MEDS ORDERED: ASPI-611 PO (16:35)
--- NOTE | 2023-05-16 18:25 | NUR ---
Patient in room ORTHO 4007. I have received report from ZAN CARMICHAEL and had the opportunity to ask questions and assume patient care.
[2023-05-16] MEDS: hydrOXYzine 25 MG tablet PO SCH (20:00)
[2023-05-16] MEDS: atorvastatin 20mg tablet PO SCH (20:01)
[2023-05-16] MEDS ORDERED: insulin glargine (Lantus) pen - multi-dose SQ SCH (21:00)
[2023-05-17] MEDS: normal saline 1000ml 1,000 ML IV SCH ×5 (00:30→23:16)
[2023-05-17] MEDS: amitriptyline 50mg tablet PO SCH ×2 (01:02→22:52)
[2023-05-17] MEDS: meclizine 12.5mg tablet PO SCH ×4 (02:50→22:54)
--- NOTE | 2023-05-17 06:15 | NUR ---
Problems reprioritized. Patient report given, questions answered & plan of care reviewed with SAMARIA POOL.
[2023-05-17 06:30] LABS: BASOPHILS % (AUTO) 0.6 % (0-1); EOSINOPHILS # (AUTO) 0.2 X10'3 (0-0.9); EOSINOPHILS % (AUTO) 3.7 % (0-6); HEMATOCRIT 41.7 % (42.0-52.0); HEMOGLOBIN 14.1 g/dl (14.0-17.9); LYMPHOCYTES # (AUTO) 1.2 X10'3 (1.1-4.8); LYMPHOCYTES % (AUTO) 29.1 % (21-51); MEAN CORPUSCULAR HEMOGLOBIN 30.6 PG (27.0-31.0); MEAN CORPUSCULAR HGB CONC 33.8 g/dL (33.0-36.5); MEAN CORPUSCULAR VOLUME 90.6 FL (78-98); MEAN PLATELET VOLUME 8.1 FL (7.4-10.4); MONOCYTES # (AUTO) 0.5 X10'3 (0-0.9); MONOCYTES % (AUTO) 11.6 % (2-12); NEUTROPHILS # (AUTO) 2.3 X10'3 (1.8-7.7); PLATELET COUNT 103 X10'3 (140-440); RED BLOOD COUNT 4.61 X10'6 (4.70-6.10); RED CELL DISTRIBUTION WIDTH 13.5 % (11.5-14.5); WHITE BLOOD COUNT 4.2 X10'3 (4.5-11.0)
[2023-05-17 06:33] LABS: ALBUMIN 2.9 G/DL (3.4-5.0); ANION GAP 8 (8-16); BLOOD UREA NITROGEN 15 MG/DL (7-18); BUN/CREATININE RATIO 18.1 (10.0-20.0); CALCIUM 8.5 MG/DL (8.5-10.1); CHLORIDE 108 MMOL/L (99-107); CREATININE 0.83 MG/DL (0.60-1.10); GLUCOSE 81 MG/DL (70-104); SODIUM 143 MMOL/L (135-145); TOTAL CARBON DIOXIDE 27.2 MMOL/L (24-32); eCRCL 114 ML/MIN; eGFR > 90 ML/MIN
[2023-05-17] MEDS ORDERED: pantoprazole 40mg Tablet.DR PO SCH (07:30)
[2023-05-17] MEDS ORDERED: losartan 25mg tablet PO SCH (08:00)
[2023-05-17] MEDS: pantoprazole 40mg Tablet.DR PO SCH (08:03)
[2023-05-17] MEDS: docusate sod 100mg capsule PO SCH ×2 (08:03→22:53)
[2023-05-17] MEDS: isosorbide mononitrate 30mg tab.SR.24H PO SCH (08:04)
[2023-05-17] MEDS: losartan 25mg tablet PO SCH (08:04)
[2023-05-17] MEDS: aspirin 81mg, enteric-coated 1 TAB TABLET.DR PO SCH (08:05)
[2023-05-17] MEDS: divalproex sodium 500mg tablet.DR PO SCH ×2 (08:05→22:54)
[2023-05-17] MEDS: atenolol 25mg tablet PO SCH (08:05)
[2023-05-17] MEDS: clopidogrel 75mg tablet PO SCH (08:05)
[2023-05-17] MEDS: hydrOXYzine 25 MG tablet PO SCH ×2 (08:05→22:55)
[2023-05-17] MEDS: nicotine 21mg patch - 24 hr TD SCH (08:08)
[2023-05-17] MEDS ORDERED: meclizine 12.5mg tablet PO PRN (08:50)
[2023-05-17 09:36] VITALS: BP 143/98; PULSE 79; RESP 16; TEMP 97.6; O2SAT 98
[2023-05-17 10:00] VITALS: BP 134/97; PULSE 73; RESP 12; TEMP 97.7; O2SAT 100
[2023-05-17] MEDS: CefTRIAXone/D5W-Rocephin 1gm 50 ML IV SCH (10:16)
[2023-05-17] MEDS ORDERED: iohexol 350MG/ML 100ml bottle IV ONE (12:45)
[2023-05-17] MEDS: MESSAGE TO NURSING PO SCH (12:55)
[2023-05-17] MEDS ORDERED: haloperidol 5mg tablet PO PRN (16:50)
[2023-05-17] MEDS ORDERED: LORazepam 1 MG tablet PO PRN (16:50)
[2023-05-17] MEDS ORDERED: LORazepam 2 mg/ml vial IV PRN (16:50)
[2023-05-17] MEDS ORDERED: dextrose 50%-water 50ml dispensing syringe IV PRN (16:50)
[2023-05-17] MEDS ORDERED: haloperidol lactate 5mg/ml inj IM PRN (16:50)
[2023-05-17 18:00] VITALS: BP 122/75; PULSE 70; RESP 16; TEMP 97.9; O2SAT 100
[2023-05-17] MEDS: folic acid 1mg/0.2ml inj IV SCH (18:12)
--- NOTE | 2023-05-17 18:40 | NUR ---
Patient in room ORTHO 4007. I have received report from Sari MERA and had the opportunity to ask questions and assume patient care.
[2023-05-17 22:00] VITALS: BP 114/69; PULSE 63; RESP 18; TEMP 97.1; O2SAT 97
[2023-05-17] MEDS: HYDROcodone/acetaminophen 5mg/325mg tablet PO PRN (22:53)
[2023-05-17] MEDS: atorvastatin 20mg tablet PO SCH (22:55)
--- NOTE | 2023-05-17 23:00 | NUR ---
BOAT MECHANIC documentation: I have reviewed and agree with all interventions, assessments performed and documented by Rahul avilez LVN.
[2023-05-17] MEDS: thiamine 100mg/ml 2ml inj. IV SCH (23:14)
[2023-05-18] MEDS: meclizine 12.5mg tablet PO SCH ×3 (02:59→14:00)
[2023-05-18 06:00] VITALS: BP 158/92; PULSE 68; RESP 16; TEMP 96.8; O2SAT 98
[2023-05-18 06:55] LABS: BASOPHILS % (AUTO) 0.6 % (0-1); EOSINOPHILS # (AUTO) 0.2 X10'3 (0-0.9); EOSINOPHILS % (AUTO) 5.3 % (0-6); HEMATOCRIT 36.8 % (42.0-52.0); HEMOGLOBIN 12.6 g/dl (14.0-17.9); LYMPHOCYTES # (AUTO) 1.2 X10'3 (1.1-4.8); LYMPHOCYTES % (AUTO) 32.3 % (21-51); MEAN CORPUSCULAR HEMOGLOBIN 30.8 PG (27.0-31.0); MEAN CORPUSCULAR HGB CONC 34.3 g/dL (33.0-36.5); MEAN CORPUSCULAR VOLUME 89.5 FL (78-98); MEAN PLATELET VOLUME 7.7 FL (7.4-10.4); MONOCYTES # (AUTO) 0.4 X10'3 (0-0.9); MONOCYTES % (AUTO) 10.8 % (2-12); NEUTROPHILS # (AUTO) 1.8 X10'3 (1.8-7.7); PLATELET COUNT 95 X10'3 (140-440); RED BLOOD COUNT 4.11 X10'6 (4.70-6.10); RED CELL DISTRIBUTION WIDTH 13.3 % (11.5-14.5); WHITE BLOOD COUNT 3.6 X10'3 (4.5-11.0)
[2023-05-18 07:06] LABS: ALBUMIN 2.8 G/DL (3.4-5.0); ANION GAP 8 (8-16); BLOOD UREA NITROGEN 14 MG/DL (7-18); BUN/CREATININE RATIO 17.3 (10.0-20.0); CALCIUM 8.6 MG/DL (8.5-10.1); CHLORIDE 108 MMOL/L (99-107); CREATININE 0.81 MG/DL (0.60-1.10); GLUCOSE 75 MG/DL (70-104); POTASSIUM 3.9 MMOL/L (3.5-5.1); SODIUM 142 MMOL/L (135-145); TOTAL CARBON DIOXIDE 26.5 MMOL/L (24-32); eCRCL 117 ML/MIN; eGFR > 90 ML/MIN
[2023-05-18] MEDS: divalproex sodium 500mg tablet.DR PO SCH (08:36)
[2023-05-18] MEDS: hydrOXYzine 25 MG tablet PO SCH (08:37)
[2023-05-18] MEDS: clopidogrel 75mg tablet PO SCH (08:37)
[2023-05-18] MEDS: aspirin 81mg, enteric-coated 1 TAB TABLET.DR PO SCH (08:37)
[2023-05-18] MEDS: isosorbide mononitrate 30mg tab.SR.24H PO SCH (08:37)
[2023-05-18] MEDS: CefTRIAXone/D5W-Rocephin 1gm 50 ML IV SCH (08:37)
[2023-05-18] MEDS: thiamine 100mg/ml 2ml inj. IV SCH ×2 (08:37→12:45)
[2023-05-18] MEDS: pantoprazole 40mg Tablet.DR PO SCH (08:37)
[2023-05-18] MEDS: docusate sod 100mg capsule PO SCH (08:37)
[2023-05-18] MEDS: nicotine 21mg patch - 24 hr TD SCH (08:40)
[2023-05-18] MEDS: losartan 25mg tablet PO SCH (08:42)
[2023-05-18] MEDS: atenolol 25mg tablet PO SCH (08:42)
[2023-05-18] MEDS: folic acid 1mg/0.2ml inj IV SCH (08:45)
[2023-05-18 10:00] VITALS: BP 155/113; PULSE 63; RESP 18; TEMP 98.2; O2SAT 98
[2023-05-18] MEDS: MESSAGE TO NURSING PO SCH (10:00)
[2023-05-18] MEDS ORDERED: MULT-1085 PO (12:43)
[2023-05-18] MEDS ORDERED: CEFD300C3 PO (12:43)
[2023-05-18] MEDS ORDERED: THIA500T PO (12:43)
[2023-05-18] MEDS ORDERED: FOLI0.4T6 PO (12:43)
== END 2023-05-18 20:09 | disposition home health service (06) | DRG 207 ==
LOC: ER 18:51 → ED HOLD 21:53 → EDBEDREQ 23:59 → ORTHO 4S 05-16 00:45
PROVIDERS: ADMIT Family Medicine; ATTEND Family Medicine
PROC: 4A00X4Z Measurement of Central Nervous Electrical Activity, External Approach (ICD-10-PCS; principal; 2023-05-17)
PROC: B3251ZZ Computerized Tomography (CT Scan) of Bilateral Common Carotid Arteries using Low Osmolar Contrast (ICD-10-PCS; 2023-05-17)
PROC: B32G1ZZ Computerized Tomography (CT Scan) of Bilateral Vertebral Arteries using Low Osmolar Contrast (ICD-10-PCS; 2023-05-17)
PROC: B32R1ZZ Computerized Tomography (CT Scan) of Intracranial Arteries using Low Osmolar Contrast (ICD-10-PCS; 2023-05-17)
PROC: B3281ZZ Computerized Tomography (CT Scan) of Bilateral Internal Carotid Arteries using Low Osmolar Contrast (ICD-10-PCS; 2023-05-17)
DX: I95.9 Hypotension, unspecified (principal); N17.9 Acute kidney failure, unspecified; D69.59 Other secondary thrombocytopenia; E11.22 Type 2 diabetes mellitus with diabetic chronic kidney disease; I13.0 Hypertensive heart and chronic kidney disease with heart failure and stage 1 through stage 4 chronic kidney disease, or unspecified chronic kidney disease; I50.22 Chronic systolic (congestive) heart failure; E11.65 Type 2 diabetes mellitus with hyperglycemia; E86.0 Dehydration; E86.1 Hypovolemia; F12.10 Cannabis abuse, uncomplicated; K21.9 Gastro-esophageal reflux disease without esophagitis; N18.9 Chronic kidney disease, unspecified; M54.9 Dorsalgia, unspecified; N28.1 Cyst of kidney, acquired; R82.4 Acetonuria; F10.239 Alcohol dependence with withdrawal, unspecified; R25.3 Fasciculation; W18.39XA Other fall on same level, initial encounter; F31.9 Bipolar disorder, unspecified; N39.0 Urinary tract infection, site not specified; G89.4 Chronic pain syndrome; H53.2 Diplopia; I25.10 Atherosclerotic heart disease of native coronary artery without angina pectoris; J44.9 Chronic obstructive pulmonary disease, unspecified; R29.6 Repeated falls; Z72.0 Tobacco use; Z87.442 Personal history of urinary calculi; Z95.5 Presence of coronary angioplasty implant and graft; Z56.0 Unemployment, unspecified; Z88.8 Allergy status to other drugs, medicaments and biological substances; Z79.899 Other long term (current) drug therapy; Z71.6 Tobacco abuse counseling; Y93.89 Activity, other specified; Y92.89 Other specified places as the place of occurrence of the external cause; Y99.8 Other external cause status; Z71.51 Drug abuse counseling and surveillance of drug abuser
CPT/HCPCS: 36415; 70450; 70496; 70498; 70544; 70547; 70551; 71045; 80048; 80053; 80061; 80164; 80305; 81001; 82550; 82948; 83036; 83690; 83735; 83880; 84100; 84145; 84443; 84484; 85025; 85379; 87081; 93005; 93306; 95816; 97116; 97161; 97530; 99285; G0378; J0696; J1815; J3411; J3490; J7030; J7120; J8597; Q0177; Q9967

== ENCOUNTER 2025-04-15 21:38 | Emergency (ER) | payer MEDICAID ==
[~2025-04-15] VITALS: Ht 180.3 cm; Wt 73.0 kg
[~2025-04-15 21:38] MED LIST changes: -AMIT100T61 PO; -ASPI-1265 PO; +ASPI-611 PO; -ATEN-236 PO; +ISOS30TA84 PO; +LOSA-416 PO; -LOSA25TA41 PO; +METF-1203 PO; +MULT-1085 PO; -NITR0.4T51 SL; -OMEP20CA15 PO; +OMEP20CA16 PO; +THIA500T PO
--- NOTE | 2025-04-15 21:59 | ELECTROCARDIOGRAPH REPORT ---
[facility] Test Date: 2025-04-15 Test Time: 21:43:38 Pat Name: SHANE KRAMER Department: EMERGENCY ROOM Room: Gender: M Grooming Assistant: : 1970 Requested By: ERIC CABRALES Order Number: [id number] Reading MD: Measurements Intervals [place] Rate: 73 P: 145 [place]: 153 QRS: 67 QRSD: 95 T: 106 QT: 379 QTc: 418 Interpretive Statements Sinus or ectopic atrial rhythm Probable left atrial enlargement Nonspecific T abnormalities, lateral leads ST elev, probable normal early repol pattern Please click the below link to view image of tracing.
--- NOTE | 2025-04-15 22:08 | Physician Documentation ---
History of Present Illness ~ Chief Complaint: See Chief Complaint Stated Complaint: L ARM NUMBNESS Time Seen by MD: 21:57 OK to notify your PCP?: Yes Primary Medical Doctor: (Carissa Urrutia) HPI Patient presents to the emergency room for evaluation of generalized weakness, depression. He also endorses some numbness in the ulnar distribution of his left hand onset today. He endorses that his left his house this past week and nobody can seem to find him. He is feeling in his wits end. Also getting evicted Medication Reconciliation Allergies: Coded Allergies: lisinopril (Verified Allergy, Intermediate, NAUSEA VOMITING, 04/15/25) Scheduled Aspirin (Aspir 81), 1 TAB PO DAILY, (Reported) Atorvastatin Calcium (Atorvastatin Calcium), 1 TAB PO DAILY, (Reported) Clopidogrel Bisulfate (Clopidogrel), 1 TAB PO DAILY, (Reported) Cyclobenzaprine HCl (Cyclobenzaprine HCl), 10 MG PO TID PRN MUSCLE SPASM, (Reported) Divalproex Sodium DR* (Kaye GORE*), 1 TAB PO QAM, (Reported) Divalproex Sodium DR* (Kaye DR*), 2 TAB PO HS, (Reported) Hydroxyzine Pamoate (Hydroxyzine Pamoate), 2 TAB PO HS, (Reported) Isosorbide Mononitrate (Isosorbide Mononitrate Er), 1 TAB PO QAM, (Reported) Losartan* (Cozaar*), 25 MG PO DAILY, (Reported) Metformin HCl (Metformin HCl), 1 TAB PO BID, (Reported) Multivitamin (Multi Vitamin Daily), 1 TAB PO DAILY Omeprazole (Omeprazole), 1 CAP PO DAILY, (Reported) Thiamine HCl (Thiamine HCl), 1 TAB PO DAILY Scheduled PRN Albuterol Sulfate (Proair Hfa), 2 PUFFS INH Q4HPRN PRN for wheezing, (Reported) Past Medical History Past Medical History: Hypertension, Kidney Stones, Diabetes, Chronic Back Pain Past Surgical History: orthopedic surgeries Alcohol Use: None Drug Use: marijuana Lives In: Home Occupation: unemployed Review of Systems ROS All review of systems negative except as per HPI Physical Exam Vital Signs: Heart Rate: 72, Respiratory Rate: 16, BP: 74/35, Pulse Oximetry: 96, Weight: 73.000 Oxygen Flow Rate: 0 Physical Exam General: Patient is awake, alert, oriented x4 in no acute distress Head: Normocephalic and atraumatic. Eyes: Conjunctival normal. EOMI. PERRL. ENT: Mucous membranes moist. Neck: Supple, trachea is midline. Chest: Clear to auscultation bilaterally without rales, rhonchi, or wheezes. There is no accessory muscle use or retractions. Cardiac: RRR without murmurs, gallops, or rubs. Abd: Soft, nondistended, nontender, with normoactive bowel sounds. No guarding, rebound, or rigidity. Extremities: Normal strength. Normal range of motion. No deformities or edema. Back: No midline spinal or CVA tenderness. Skin: Warm and dry with no significant rash appreciated. Neuro: Cranial nerves II-XII grossly intact. No focal neuro deficits. Patient ambulating without difficulty. Psych: Decreased affect, cooperative, good eye contact. Progress Results/Orders Results/Orders Orders - TUCKER CABRALES MD Culture Blood (04/15/25 21:57) Chest,Single View (04/15/25 22:23) Completed Orders - TUCKER CABRALES MD Electrocardiogram (04/15/25 21:57) Cbc/Diff (04/15/25 21:57) MG (04/15/25 21:57) Chest,Single View (04/15/25 22:23) Normal Saline 1000ml (0.9% Sodium Chlori (04/15/25 22:00) Procalcitonin (04/15/25 21:57) BMP (04/15/25 21:57) Hs Troponin I W Calculations (04/15/25 21:57) Lacticsepsis (04/15/25 21:57) Drug Screen, Urine (04/15/25 22:00) Ethanol (04/15/25 22:00) TSH (04/15/25 22:00) Valproate (04/15/25 21:43) Ua W/Microscopic, Cult If Ind (04/16/25 01:00) Normal Saline 1000ml (0.9% Sodium Chlori (04/16/25 01:40) BMP (04/16/25 04:26) Medications Received in ER Medications (Trade) Dose Ordered Sig/Derrick Route PRN Reason Start Time Stop Time Status Last Admin Dose Admin (0.9% sodium chloride (NS) 1000ml IV soln) 2,000 ml ONCE ONCE IV 04/15/25 22:00 04/15/25 22:01 DC 04/15/25 22:11 2,000 ML Sodium Chloride 1,000 ml @ 1,000 mls/hr ONCE ONCE IV 04/16/25 01:40 04/16/25 02:39 DC 04/16/25 01:43 1,000 MLS/HR Vital Signs 04/15/25 04/15/25 04/15/25 04/16/25 21:48 22:11 22:12 00:06 Pulse 72 69 58 Resp 16 13 13 16 B/P (MAP) 74/35 90/52 (65) 93/55 (68) Pulse Ox 96 98 O2 Flow Rate 0 0 04/16/25 04/16/25 04/16/25 04/16/25 01:30 02:15 03:00 04:00 Pulse 56 52 53 52 Resp 17 14 15 16 B/P (MAP) 79/51 (60) 90/51 (64) 103/51 (68) 99/62 (74) Pulse Ox 97 98 93 97 O2 Flow Rate 0 0 0 0 Laboratory Tests Test 04/15/25 21:43 04/15/25 22:08 04/16/25 01:00 04/16/25 04:36 White Blood Count 6.4 Red Blood Count 4.45 L Hemoglobin 13.6 L Hematocrit 39.2 L Mean Corpuscular Volume 88.0 Mean Corpuscular Hemoglobin 30.4 Mean Corpuscular Hemoglobin Concent 34.6 Red Cell Distribution Width 14.1 Platelet Count 228 Mean Platelet Volume 7.6 Neutrophils (%) (Auto) 57.6 Lymphocytes (%) (Auto) 29.6 Monocytes (%) (Auto) 11.1 Eosinophils (%) (Auto) 1.3 Basophils (%) (Auto) 0.4 Neutrophils # (Auto) 3.7 Lymphocytes # (Auto) 1.9 Monocytes # (Auto) 0.7 Eosinophils # (Auto) 0.1 Basophils # (Auto) 0.0 CBC Comment Sodium Level 138 141 Potassium Level 3.6 3.0 *L Chloride Level 101 109 H Carbon Dioxide Level 28.6 25.1 Anion Gap 8 7 L Blood Urea Nitrogen 37 H 33 H Creatinine 2.14 H 1.12 H Estimated GFR/1.73 m2 32 68 BUN/Creatinine Ratio 17.3 29.5 H Glucose Level 142 H 139 H Calcium Level 8.7 7.4 L Magnesium Level 1.8 Troponin I High Sensitivity 5 Albumin 4.1 2.8 L Procalcitonin < 0.05 Thyroid Stimulating Hormone (TSH) 0.86 Chemistry Comments Valproic Acid (Depakene) Level 87 Ethyl Alcohol Level < 10 Lactic Acid Level 1.8 Urine Specimen Description Non-specified Urine Color Yellow Urine Clarity Clear Urine pH 6.0 Urine Specific [place] 1.025 Urine Protein 30 H Urine Glucose (UA) Negative Urine Ketones Trace H Urine Occult Blood Negative Urine Nitrite Negative Urine Bilirubin Negative Urine Urobilinogen 1.0 Urine Leukocyte Esterase Negative Urine RBC 0-2 Urine WBC 0-4 Urine Squamous Epithelial Cells None seen Urine Renal Cells Urine Bacteria None seen Urine Hyaline Casts >30 Urine Mucus Few Urine Sperm Few Urine Culture Indicated Not ind Volume Urine Centrifuged 10 ml Urine Comment Urine Opiates Screen Negative Urine Methadone Screen Negative Urine Fentanyl Screen Negative Urine Barbiturates Screen Negative Urine Phencyclidine Screen Negative Urine Amphetamines Screen Negative Urine Benzodiazepines Screen Negative Urine Cocaine Screen Negative Urine Cannabinoids Screen Positive Drug Screen Comment Microbiology Date/Time Source Procedure Growth Status 04/15/25 22:08 Blood Arm Left Blood Culture - Preliminary NEGATIVE (LESS THAN 24 HOURS) Resulted EKG/XRAY/CT/US/VASC/MRI EKG : Additional Comment EKG interpreted by myself shows time of 10/20/2042, rate 73, sinus rhythm, right axis deviation, nonspecific ST-T changes Medical Decision Making Findings Patient presents to the emergency room for evaluation of generalized weakness in symptoms of depression. Sat had a long discussion with patient. He is beside himself worrying about his . He denies any SI/HI. Discussed whether that has he gravely disabled or not and he feels that he would do better if he had a refill of this hydroxyzine as he ran out and he feels this has been one of the main contributed that has to his overall feelings. Offered to have him stay if he is at his wits end however he would prefer to go home as long as he has his hydroxyzine. ER precautions discussed regarding SI/HI. Patient did have significant decreased renal function however it has improved with IV fluids. He has been instructed to drink more water. Iatrogenic hypokalemia noted. We will begin supplementation. Differential Dx:Considerations: Include: anemia, electrolyte imbalance, hypoglycemia, hypovolemia, renal failure Departure Disposition: HOME / SELF CARE / HOMELESS Impression: Primary Impression: Dehydration Additional Impressions: Depression Hypokalemia Condition: Fair Discharge Instructions: Managing Depression, Adult Additional Instructions: Follow up with your doctor as scheduled on the . Return for any suicidal ideation. Your potassium was little low and we will add a few tablets of supplementation to your hydroxyzine prescription Referrals: NO PRIMARY CARE PROVIDER (PCP) Prescriptions Potassium Chloride* (K-Dur*) 20 Meq Tab.prt.sr 1 TAB PO Q12H, #6 TAB Prov: TUCKER CABRALES MD 04/16/25 Hydroxyzine Hcl* (Atarax*) 25 Mg Tablet 1 TAB PO Q8H for anxiety for 10 Days, #30 TAB Prov: TUCKER CABRALES MD 04/16/25 Education Educated: Patient Educated regarding: diagnosis, treatment, need for follow up Signature Scribe Signature: No scribe Attestation: The note accurately reflects work and decisions made by me.Tucker Cabrales MD 04/16/25 05:12 TUCKER CABRALES MD Apr 15, 2025 22:08
[2025-04-15] MEDS: normal saline 1000ML IV soln IV ONE (22:11)
[2025-04-15 22:14] LABS: MEAN PLATELET VOLUME 7.6 FL (7.4-10.4); RED CELL DISTRIBUTION WIDTH 14.1 % (11.5-14.5)
[2025-04-15 22:35] LABS: CREATININE 2.14 MG/DL (0.60-1.10); TOTAL CARBON DIOXIDE 28.6 MMOL/L (24-32); eCRCL 41 ML/MIN; eGFR 32 ML/MIN
--- NOTE | 2025-04-15 22:35 | RADIOLOGY REPORT ---
CHEST RADIOGRAPH Indication: SEPSIS Technique: Single frontal view of the chest was obtained COMPARISON: None FINDINGS: Lines and Tubes: None Lungs: Clear Pleura: No effusion. No pneumothorax. Cardiomediastinal contours: Unremarkable Bones: Unremarkable IMPRESSION: 1. No acute disease.
[2025-04-15 22:36] LABS: ETHANOL < 10 MG/DL (<10)
[2025-04-16 00:01] LABS: VALPROATE 87 UG/ML (50-100)
[2025-04-16 01:14] LABS: LEUKOCYTE ESTERASE ,URINE NEGATIVE (Neg); NITRITES, URINE NEGATIVE (Neg); OCCULT BLOOD,URINE NEGATIVE (Neg)
[2025-04-16 01:16] LABS: UA COLLECTION TYPE NON-SPECIFIED
[2025-04-16 01:20] LABS: HYALINE CASTS >30 /LPF (NEGATIVE); MUCUS STRANDS FEW /LPF (Neg); SQUAMOUS EPITHELIAL CELL,UR NONE SEEN /LPF (FEW)
[2025-04-16 01:21] LABS: SPERM FEW /HPF (NEGATIVE)
[2025-04-16 01:25] LABS: URINE AMPHETAMINE SCREEN NEGATIVE (Neg); URINE BARBITUATE SCREEN NEGATIVE (Neg); URINE BENZODIAZEPINES SCREEN NEGATIVE (Neg); URINE CANNABINOID SCREEN POSITIVE (Neg); URINE COCAINE SCREEN NEGATIVE (Neg); URINE METHADONE SCREEN NEGATIVE (Neg); URINE OPIATE SCREEN NEGATIVE (Neg); URINE PHENCYCLIDINE SCREEN NEGATIVE (Neg)
[2025-04-16] MEDS: normal saline 1000ml 1,000 ML IV ONE (01:43)
[2025-04-16 04:54] LABS: CREATININE 1.12 MG/DL (0.60-1.10); TOTAL CARBON DIOXIDE 25.1 MMOL/L (24-32); eCRCL 78 ML/MIN; eGFR 68 ML/MIN
[2025-04-16] MEDS ORDERED: HYDR-3686 PO (05:12)
[2025-04-16] MEDS ORDERED: POTA-207 PO (05:12)
[2025-04-16] MEDS: potassium Cl 20 mEq SR tablet PO STA (05:42)
[2025-04-16 05:54] VITALS: BP 127/69; PULSE 60; RESP 14; O2SAT 98
== END 2025-04-16 05:55 | disposition home or self-care (01) ==
LOC: ER 21:39
DX: E86.0 Dehydration (principal); F32.A Depression, unspecified; E87.6 Hypokalemia; I10 Essential (primary) hypertension; E11.9 Type 2 diabetes mellitus without complications; F12.90 Cannabis use, unspecified, uncomplicated; Z88.8 Allergy status to other drugs, medicaments and biological substances; Z79.82 Long term (current) use of aspirin; Z79.899 Other long term (current) drug therapy; Z87.442 Personal history of urinary calculi; Z56.0 Unemployment, unspecified
CPT/HCPCS: 36415; 71045; 80048; 80164; 80305; 80320; 81001; 83605; 83735; 84145; 84443; 84484; 85025; 87040; 93005; 96360; 96361; 99285; J7030